=== PATIENT | female | born 1975 | race Caucasian/White ===

== ENCOUNTER 2016-09-15 10:52 | Outpatient (CLI) | payer OTHER ==
--- NOTE | 2016-09-15 12:09 | DIAGNOSTIC IMAGING REPORT ---
PROCEDURE: US COMPLETE PELVIC W/TRANSVAG INDICATION: PELVIC PAIN TECHNIQUE: Transabdominal and endovaginal marr scale and color Doppler sonographic images of the female pelvis were obtained. COMPARISON: None. FINDINGS: TRANSABDOMINAL SCANS: The uterus is of normal size 5.7 x 4.9 x 3.9 Kidneys are normal. TRANSVAGINAL SCANS: The uterus is anteverted. Myometrium is normal. The endometrium measures 11 mm. Right ovary is normal measuring 2.8 x 1.8 x 1.8. There is 18 mm follicle on the right ovary with a small amount of internal debris. The left ovary is normal measuring 2.2 x 1.2 x 1.5. Good flow was noted in both ovaries. IMPRESSION: 1. Normal uterus and ovaries and kidneys.
== END 2016-09-15 23:00 ==
LOC: US SRH 10:52
DX: N93.8 Other specified abnormal uterine and vaginal bleeding (principal)